=== PATIENT | female | born 1985 | race Hispanic/Latino ===

== ENCOUNTER 2022-11-25 15:48 | Inpatient (IN) | payer OTHER ==
[2022-11-25] MEDS ORDERED: Azithromycin 500 MG VIAL ONE (15:57)
[2022-11-25] MEDS ORDERED: Magnesium Sulfate 20 gm/500 ml 20 GM/500 ML BAG ONE (15:58)
[2022-11-25] MEDS ORDERED: Ondansetron PF 4 MG/2 ML Vial IVP PRN (16:17)
[2022-11-25] MEDS ORDERED: hydrALAZINE 20 MG/ML VIAL SLOW IVP PRN (16:17)
[2022-11-25] MEDS ORDERED: Carboprost 250 MCG/ML AMP IM PRN (16:17)
[2022-11-25] MEDS ORDERED: Acetaminophen 500 MG TAB PO PRN (16:17)
[2022-11-25] MEDS ORDERED: Lidocaine 1% (PF) 30 ML VIAL SC PRN (16:17)
[2022-11-25] MEDS ORDERED: Diphenoxylate HCl/Atropine Tablet PO PRN ×2 (16:17)
[2022-11-25] MEDS ORDERED: Promethazine HCl 25 MG/ML VIAL IM PRN (16:17)
[2022-11-25] MEDS ORDERED: Misoprostol 200 MCG TAB PR PRN (16:17)
[2022-11-25] MEDS ORDERED: Tranexamic Acid 1,000 MG/10 ML VIAL IVP PRN (16:17)
[2022-11-25] MEDS ORDERED: Methylergonovine 0.2 MG/ML VIAL IM PRN (16:17)
[2022-11-25] MEDS ORDERED: NS w/ Oxytocin 30 units 500 ML IV SCH (16:30)
[2022-11-25] MEDS ORDERED: Calcium Gluc 4.6 MEQ/10 ML (100 MG/ML) SLOW IVP PRN (16:33)
[2022-11-25] MEDS ORDERED: Terbutaline Sulfate 1 MG/ML VIAL SC SCH (16:45)
[2022-11-25] MEDS ORDERED: Azithromycin 250 MG TAB PO SCH (17:00)
[2022-11-25] MEDS ORDERED: Magnesium Sulfate 20 gm/500 ml 20 GM/500 ML BAG IVPB SCH (17:15)
[2022-11-25] MEDS ORDERED: Magnesium Sulfate 20 gm/500 ml 2 GM/50 ML BAG IVPB SCH (17:15)
[2022-11-25 17:22] VITALS: BMI 29.0
[2022-11-25] MEDS ORDERED: Ampicillin 2 GM in Sodium Chloride 0.9% 100 ML IVPB SCH (18:00)
[2022-11-25 18:17] LABS: Bilirubin Neg (Negative); Blood, Urine 25 (Negative); Clarity Clear (Clear); Glucose, Urine (Dipstick) Normal (Negative); Ketone, Urine 150 mg/dL (Negative); Leukocyte Negative (Negative); Nitrite Negative (Negative); Protein, Urine (Dipstick) Negative (Neg-Trace); Urobilinogen Normal mg/dL (Less than 2)
[2022-11-25 18:32] LABS: Hemoglobin 11.4 g/dL (12.0-15.5); Mean Corpuscular HGB CONC 34.1 g/dL (32.0-36.0); Mean Corpuscular Hemoglobin 30.6 pg (27.0-33.0); Mean Corpuscular Volume 89.8 fl (81.6-98.3); Mean Platelet Volume 10.2 fl (7.4-10.4); Platelet Count 217 10x3/uL (150-450); RBC Distribution Width 12.4 % (11.5-14.5); Red Blood Cell (RBC) Count 3.72 10x6/uL (3.90-5.03)
[2022-11-25 18:47] LABS: Bacteria/HPF None Seen HPF (None Seen); RBC/HPF 0-3 HPF (0-3); Squamous Epithelial 0-3 HPF (0-3); WBC/HPF 0-3 HPF (0-3)
[2022-11-25] MEDS ORDERED: Piperacillin/Tazobactam 3.375 GM in Sodium Chloride 0.9% 100 ML IVPB SCH (19:00)
[2022-11-25 19:05] LABS: ALT (SGPT) 12 U/L (8-55); AST (SGOT) 13 U/L (5-34); Albumin 3.6 g/dL (3.5-5.0); Alkaline Phosphatase 92 U/L (40-110); Anion Gap 18 mmol/L (10-20); BUN (Urea Nitrogen) 6 mg/dL (7.0-18.7); Bilirubin, Total 0.3 mg/dL (0.2-1.2); Calc. Creatinine Clearance 153 mL/min (70-130); Calcium 8.1 mg/dL (7.8-10.44); Carbon Dioxide 16 mmol/L (22-29); Chloride 107 mmol/L (98-107); Estimated GFR 116; Globulin 2.9 g/dL (2.4-3.5); Glucose 126 mg/dL (70-105); Potassium 3.3 mmol/L (3.5-5.1); Protein, Total 6.5 g/dL (6.0-8.3); Sodium 138 mmol/L (136-145)
[2022-11-25] MEDS ORDERED: Dextrose 5 % And 0.9 % NaCl 500 ML IV SCH (19:15)
[2022-11-25 19:25] LABS: Syphilis Antibody Nonreactive (Nonreactive); Syphilis Antibody Index 0.04 S/CO (<1.00 Non-Reactive)
[2022-11-25 19:26] LABS: HBSAg Index 0.18 S/CO (0-0.99); Hep B Surf Ag - L&D Non-Reactive S/CO (NonReactive)
[2022-11-25] MEDS ORDERED: Potassium Chloride 20 MEQ in Premix Bag 1 BAG IVPB SCH (21:30)
[2022-11-25 23:06] LABS: Mean Corpuscular HGB CONC 34.5 g/dL (32.0-36.0); Mean Corpuscular Hemoglobin 30.1 pg (27.0-33.0); Mean Corpuscular Volume 87.4 fl (81.6-98.3); Mean Platelet Volume 10.1 fl (7.4-10.4); Platelet Count 232 10x3/uL (150-450); RBC Distribution Width 12.1 % (11.5-14.5); Red Blood Cell (RBC) Count 3.65 10x6/uL (3.90-5.03); White Blood Cell (WBC) Count 26.4 10x3/uL (3.5-10.5)
[2022-11-25 23:30] LABS: MDiff Complete? YES
[2022-11-25 23:43] LABS: Band 14 % (5-11); Lymphocytes 2 % (21-51); Monocytes 2 % (0-10); Neutrophil 82 % (42-75)
[2022-11-25 23:46] LABS: Platelet Morphology Comment Appears Adequate; RBC Morphology Normal
[2022-11-26] MEDS: Piperacillin/Tazobactam 3.375 GM in Sodium Chloride 0.9% 100 ML IVPB SCH ×3 (01:01→18:19)
[2022-11-26] MEDS: Gentamicin 340 MG, Admixture Fee 1 EACH in Sodium Chloride 0.9% 100 ML IVPB SCH (02:53)
[2022-11-26] MEDS ORDERED: Clindamycin/D5W 900 MG in Premix Bag 1 BAG IVPB SCH (04:15)
[2022-11-26] MEDS ORDERED: Oxytocin 10 UNITS/ML VIAL ONE (04:19)
[2022-11-26] MEDS ORDERED: Fentanyl 100 MCG/2 ML VIAL ONE (04:19)
[2022-11-26] MEDS ORDERED: Morphine PF 10 MG/10 ML VIAL ONE (04:19)
[2022-11-26] MEDS ORDERED: Ondansetron PF 4 MG/2 ML Vial ONE (04:34)
[2022-11-26] MEDS ORDERED: PHENYLEPHRINE-NS 100 MCG/ML 10 ML SYRINGE ONE (04:34)
[2022-11-26] MEDS ORDERED: Metoclopramide HCl 10 MG/2 ML VIAL ONE (04:52)
[2022-11-26] MEDS ORDERED: Dexamethasone 4 mg/ml Vial ONE (04:52)
[2022-11-26] MEDS ORDERED: diphenhydrAMINE 50 MG/ML VIAL IVP PRN (05:56)
[2022-11-26] MEDS ORDERED: Ketorolac Tromethamine 30 MG/ML VIAL IVP PRN (05:56)
[2022-11-26] MEDS ORDERED: Meperidine HCl/PF 25 MG/ML VIAL SLOW IVP PRN (05:56)
[2022-11-26] MEDS ORDERED: Promethazine HCl 25 MG/ML VIAL IM PRN (05:56)
[2022-11-26] MEDS ORDERED: Ondansetron PF 4 MG/2 ML Vial IVP PRN ×2 (05:56→17:50)
[2022-11-26] MEDS ORDERED: Naloxone HCl 0.4 mg/ml Vial IVP PRN ×2 (05:56)
[2022-11-26] MEDS ORDERED: Ondansetron HCl/PF 4 MG/2 ML Vial IVP PRN (05:56)
[2022-11-26] MEDS ORDERED: Promethazine HCl 25 MG SUPP PR PRN (05:56)
[2022-11-26] MEDS ORDERED: Naloxone HCl 0.4 mg/ml Vial IV PRN (05:56)
[2022-11-26] MEDS ORDERED: Moisturizing Cream (Eucerin) 113 GM JAR TOP PRN (05:56)
[2022-11-26] MEDS ORDERED: Fentanyl 100 MCG/2 ML VIAL SLOW IVP PRN (05:56)
[2022-11-26] MEDS ORDERED: Communication Order-Pharmacy FS SCH (06:00)
[2022-11-26] MEDS ORDERED: Ketorolac Tromethamine 30 MG/ML VIAL IVP SCH (06:00)
[2022-11-26 09:05] LABS: Hemoglobin 9.5 g/dL (12.0-15.5); MDiff Complete? YES; Mean Corpuscular HGB CONC 34.1 g/dL (32.0-36.0); Mean Corpuscular Hemoglobin 30.2 pg (27.0-33.0); Mean Corpuscular Volume 88.6 fl (81.6-98.3); Mean Platelet Volume 10.5 fl (7.4-10.4); Platelet Count 224 10x3/uL (150-450); RBC Distribution Width 12.5 % (11.5-14.5); Red Blood Cell (RBC) Count 3.15 10x6/uL (3.90-5.03); White Blood Cell (WBC) Count 23.6 10x3/uL (3.5-10.5)
[2022-11-26 09:32] LABS: ALT (SGPT) 10 U/L (8-55); AST (SGOT) 9 U/L (5-34); Albumin 2.9 g/dL (3.5-5.0); Alkaline Phosphatase 73 U/L (40-110); Anion Gap 12 mmol/L (10-20); BUN (Urea Nitrogen) 6 mg/dL (7.0-18.7); Bilirubin, Total 0.4 mg/dL (0.2-1.2); Calc. Creatinine Clearance 177 mL/min (70-130); Calcium 8.3 mg/dL (7.8-10.44); Carbon Dioxide 18 mmol/L (22-29); Chloride 110 mmol/L (98-107); Estimated GFR 120; Globulin 2.8 g/dL (2.4-3.5); Glucose 124 mg/dL (70-105); Potassium 4.3 mmol/L (3.5-5.1); Protein, Total 5.7 g/dL (6.0-8.3); Sodium 136 mmol/L (136-145)
[2022-11-26 09:54] LABS: Lymphocytes 3 % (21-51); Monocytes 6 % (0-10); Neutrophil 91 % (42-75)
[2022-11-26 09:55] LABS: Platelet Morphology Comment Appears Adequate
[2022-11-26] MEDS ORDERED: Betamet Acet/Betamet Na Ph 30 MG/5 ML VIAL IM SCH (15:00)
[2022-11-26] MEDS ORDERED: Lactated Ringer's 500 ML IV SCH (16:00)
[2022-11-26] MEDS: Clindamycin/D5W 900 MG in Premix Bag 1 BAG IVPB SCH ×2 (16:23→20:09)
[2022-11-26] MEDS ORDERED: Lactated Ringer's 1,000 ML IV SCH (16:30)
[2022-11-26 17:23] LABS: Chlamydia by PCR Not Detected (NotDetected); GC by PCR Not Detected (NotDetected)
[2022-11-26] MEDS ORDERED: Methylergonovine 0.2 MG/ML VIAL IM PRN (17:50)
[2022-11-26] MEDS ORDERED: Acetaminophen 325 MG TAB PO PRN (17:50)
[2022-11-26] MEDS ORDERED: NS w/ Oxytocin 30 units 500 ML IV SCH (17:50)
[2022-11-26] MEDS ORDERED: hydrALAZINE 20 MG/ML VIAL SLOW IVP PRN (17:50)
[2022-11-26] MEDS ORDERED: Lanolin Ointment 7 GM TUBE TOP PRN (17:50)
[2022-11-26] MEDS ORDERED: diphenhydrAMINE 25 MG CAP PO PRN (17:50)
[2022-11-26] MEDS ORDERED: Misoprostol 200 MCG TAB PR PRN (17:50)
[2022-11-26] MEDS ORDERED: Boostrix 0.5 ML (Tdap) VIAL (>/=7 yrs of age) IM ONE (17:50)
[2022-11-26] MEDS ORDERED: HYDROcodone/Acetaminophen 5/325 mg Tablet PO PRN (18:00)
[2022-11-26] MEDS ORDERED: Prenatal Vitamin 1 TAB PO SCH (18:00)
[2022-11-26] MEDS: Docusate 100 MG CAP PO SCH ×2 (18:35→20:10)
[2022-11-26] MEDS: Ferrous Sulfate 325 MG TAB PO SCH ×2 (18:35→20:11)
[2022-11-26 21:38] LABS: Group B Streptococcus by PCR Not Detected (NotDetected)
[2022-11-26] MEDS: HYDROcodone/Acetaminophen 5/325 mg Tablet PO PRN (22:42)
[2022-11-26] MEDS ORDERED: Simethicone Chewable 80 MG TAB PO SCH (23:30)
[2022-11-27] MEDS: Piperacillin/Tazobactam 3.375 GM in Sodium Chloride 0.9% 100 ML IVPB SCH ×4 (02:36→18:25)
[2022-11-27] MEDS: Gentamicin 340 MG, Admixture Fee 1 EACH in Sodium Chloride 0.9% 100 ML IVPB SCH (02:37)
[2022-11-27] MEDS: Clindamycin/D5W 900 MG in Premix Bag 1 BAG IVPB SCH ×3 (03:55→20:25)
[2022-11-27 04:05] LABS: ALT (SGPT) 11 U/L (8-55); AST (SGOT) 11 U/L (5-34); Albumin 2.8 g/dL (3.5-5.0); Alkaline Phosphatase 67 U/L (40-110); Anion Gap 11 mmol/L (10-20); BUN (Urea Nitrogen) 8 mg/dL (7.0-18.7); Bilirubin, Total 0.2 mg/dL (0.2-1.2); Calc. Creatinine Clearance 163 mL/min (70-130); Calcium 8.3 mg/dL (7.8-10.44); Carbon Dioxide 21 mmol/L (22-29); Chloride 109 mmol/L (98-107); Estimated GFR 118; Globulin 2.6 g/dL (2.4-3.5); Glucose 116 mg/dL (70-105); Potassium 4.4 mmol/L (3.5-5.1); Protein, Total 5.4 g/dL (6.0-8.3); Sodium 137 mmol/L (136-145)
[2022-11-27 04:27] LABS: #Monocytes 0.9 10x3/uL (0.0-1.1); #Neutrophils 16.2 10x3/uL (1.5-8.4); %Basophils 0.1 % (0.0-2.0); %Eosinophils 0.1 % (0.0-6.0); %Lymphocytes 8.2 % (18.0-47.0); %Neutrophils 85.5 % (40.0-75.0); Hemoglobin 8.4 g/dL (12.0-15.5); Mean Corpuscular HGB CONC 34.1 g/dL (32.0-36.0); Mean Corpuscular Hemoglobin 30.8 pg (27.0-33.0); Mean Corpuscular Volume 90.1 fl (81.6-98.3); Mean Platelet Volume 10.5 fl (7.4-10.4); Platelet Count 198 10x3/uL (150-450); RBC Distribution Width 12.8 % (11.5-14.5); Red Blood Cell (RBC) Count 2.73 10x6/uL (3.90-5.03); White Blood Cell (WBC) Count 18.9 10x3/uL (3.5-10.5)
[2022-11-27] MEDS: Ibuprofen 800 MG TAB PO SCH ×3 (06:22→21:20)
[2022-11-27] MEDS: Simethicone Chewable 80 MG TAB PO SCH ×3 (06:23→17:57)
[2022-11-27] MEDS: Prenatal Vitamin 1 TAB PO SCH (08:38)
[2022-11-27] MEDS: Docusate 100 MG CAP PO SCH ×2 (08:39→21:20)
[2022-11-27] MEDS: Ferrous Sulfate 325 MG TAB PO SCH ×2 (08:39→21:19)
[2022-11-27] MEDS: HYDROcodone/Acetaminophen 5/325 mg Tablet PO PRN (08:39)
[2022-11-27] MEDS ORDERED: Ibuprofen 800 MG TAB PO SCH (14:00)
[2022-11-28] MEDS: Simethicone Chewable 80 MG TAB PO SCH ×3 (00:23→13:17)
[2022-11-28] MEDS: Piperacillin/Tazobactam 3.375 GM in Sodium Chloride 0.9% 100 ML IVPB SCH (02:42)
[2022-11-28] MEDS: Gentamicin 340 MG, Admixture Fee 1 EACH in Sodium Chloride 0.9% 100 ML IVPB SCH (02:45)
[2022-11-28 04:33] LABS: #Eosinphils 0.1 10x3/uL (0.0-0.5); #Monocytes 0.7 10x3/uL (0.0-1.1); #Neutrophils 10.4 10x3/uL (1.5-8.4); %Basophils 0.3 % (0.0-2.0); %Lymphocytes 15.5 % (18.0-47.0); %Monocytes 4.8 % (0.0-10.0); %Neutrophils 76.9 % (40.0-75.0); Hemoglobin 8.7 g/dL (12.0-15.5); Mean Corpuscular HGB CONC 33.2 g/dL (32.0-36.0); Mean Corpuscular Hemoglobin 29.9 pg (27.0-33.0); Mean Platelet Volume 10.4 fl (7.4-10.4); Platelet Count 224 10x3/uL (150-450); RBC Distribution Width 12.5 % (11.5-14.5); Red Blood Cell (RBC) Count 2.91 10x6/uL (3.90-5.03); White Blood Cell (WBC) Count 13.5 10x3/uL (3.5-10.5)
[2022-11-28] MEDS: Clindamycin/D5W 900 MG in Premix Bag 1 BAG IVPB SCH (04:37)
[2022-11-28 04:55] LABS: ALT (SGPT) 8 U/L (8-55); AST (SGOT) 7 U/L (5-34); Albumin 2.9 g/dL (3.5-5.0); Alkaline Phosphatase 79 U/L (40-110); Anion Gap 14 mmol/L (10-20); BUN (Urea Nitrogen) 10 mg/dL (7.0-18.7); Bilirubin, Total 0.2 mg/dL (0.2-1.2); Calc. Creatinine Clearance 142 mL/min (70-130); Carbon Dioxide 22 mmol/L (22-29); Chloride 107 mmol/L (98-107); Estimated GFR 114; Glucose 87 mg/dL (70-105); Protein, Total 5.9 g/dL (6.0-8.3); Sodium 139 mmol/L (136-145)
[2022-11-28] MEDS: Ibuprofen 800 MG TAB PO SCH ×2 (05:15→14:17)
[2022-11-28 05:24] VITALS: TEMP 98.1
[2022-11-28 07:30] VITALS: BP 106/63
[2022-11-28] MEDS: Prenatal Vitamin 1 TAB PO SCH (08:03)
[2022-11-28] MEDS: Ferrous Sulfate 325 MG TAB PO SCH (08:04)
[2022-11-28] MEDS: Docusate 100 MG CAP PO SCH (08:04)
[2022-11-28] MEDS: HYDROcodone/Acetaminophen 5/325 mg Tablet PO PRN ×2 (08:06→14:51)
[2022-11-28] MEDS ORDERED: metroNIDAZOLE 500 MG TAB PO SCH (09:00)
[2022-11-28] MEDS ORDERED: Amoxicillin/Potassium Clav 875 MG TAB PO SCH (09:00)
== END 2022-11-28 17:13 | disposition home or self-care (01) | DRG 786 ==
LOC: CSHLD 15:48 → CSHPP 11-26 18:00
PROVIDERS: ADMIT Obstetrics & Gynecology; ATTEND Obstetrics & Gynecology
PROC: 10D00Z1 Extraction of Products of Conception, Low, Open Approach (ICD-10-PCS; principal; 2022-11-26)
DX: O42.912 Preterm premature rupture of membranes, unspecified as to length of time between rupture and onset of labor, second trimester (principal); O41.1220 Chorioamnionitis, second trimester, not applicable or unspecified; O76 Abnormality in fetal heart rate and rhythm complicating labor and delivery; O77.0 Labor and delivery complicated by meconium in amniotic fluid; Z79.899 Other long term (current) drug therapy; Z3A.25 25 weeks gestation of pregnancy; Z37.0 Single live birth; E87.6 Hypokalemia; O99.285 Endocrine, nutritional and metabolic diseases complicating the puerperium; O90.89 Other complications of the puerperium, not elsewhere classified; I95.9 Hypotension, unspecified
CPT/HCPCS: 36415; 36430; 51702; 76815; 80053; 81001; 82805; 83605; 85025; 85027; 86780; 86850; 86900; 86901; 87070; 87086; 87205; 87340; 87480; 87491; 87510; 87591; 87653; 87660; 88307; J1100; J1580; J1885; J2274; J2405; J2543; J2590; J2765; J3010; J3105; J3475; J3480; J3490; J7120